=== PATIENT | male | born 1960 | race Asian ===

== ENCOUNTER 2018-09-14 02:50 | Emergency (ER) | payer BC ==
[~2018-09-14] VITALS: Ht 172.7 cm; Wt 74.8 kg
[2018-09-14 03:15] VITALS: BP_SYST 132
--- NOTE | 2018-09-14 03:45 | NUR ---
Pt to bed 6, side rails up. Report given to Dusty MES[facility]
--- NOTE | 2018-09-14 03:50 | NUR ---
Pt in bed AAOX4, VSS with no respiratory distress at this time. Pt came in with a complaint of abdominal pain and cramps 01/26. No other complaint noted. Has history of Hypertension. Safety precaution observed. Will continue to monitor Pt.
--- NOTE | 2018-09-14 04:30 | NUR ---
ER MD Kumar at bedside for medical evaluation
[2018-09-14] MEDS ORDERED: NACL 0.9% 1,000 ML IV ONE (04:54)
[2018-09-14] MEDS ORDERED: ONDANSETRON HCL 4 MG/2 ML VIAL IVP ONE (05:00)
[2018-09-14 05:19] LABS: HEMATOCRIT 46.9 % (36-54); HEMOGLOBIN 15.8 g/dL (14.0-18.0); MEAN CORPUSCULAR VOLUME 88 fL (79.0-98.0); PROTHROMBIN TIME 9.8 SECS (9.5-12.5); RED BLOOD CELL COUNT(AUTO) 5.31 MIL/uL (4.2-6.2); WHITE BLOOD COUNT (AUTO) 13.6 K/uL (4.8-10.8)
[2018-09-14 05:20] LABS: MEAN CORPUSCULAR HEMOGLOBIN 30 pg (27-31); MEAN CORPUSCULAR HGB CONC 34 % (32-36); PLATELET COUNT (AUTO) 268 K/uL (130-430); RED CELL DISTRIBUTION WIDTH 13.2 % (9.0-15.0)
[2018-09-14 05:21] LABS: BASOPHILS % (AUTO) 0.2 % (0.0-2.0); LYMPHOCYTES # (AUTO) 0.2 K/uL (1.0-5.5); LYMPHOCYTES % (AUTO) 1.7 % (20.5-51.5); MONOCYTES # (AUTO) 0.4 K/uL (0.0-1.0); NEUTROPHILS # (AUTO) 12.9 K/uL (1.8-7.7); NEUTROPHILS % (AUTO) 95.1 % (40.0-70.0)
--- NOTE | 2018-09-14 05:30 | NUR ---
Pt in bed, no acute distress at this time. Will continue to monitor Pt.
[2018-09-14 05:35] LABS: CALCIUM 9.4 mg/dL (8.4-11.0); CREATININE 1.25 mg/dL (0.55-1.30); POTASSIUM 3.9 mmol/L (3.5-5.1)
[2018-09-14 05:40] LABS: ALBUMIN 4.4 g/dL (3.4-4.8); TOTAL BILIRUBIN 0.9 mg/dL (0.0-1.0)
[2018-09-14 07:00] VITALS: BP_SYST 128
--- NOTE | 2018-09-14 07:00 | NUR ---
Patient given written and verbal discharge instructions and verbalizes understanding. ER MD Kumar discussed with patient the results and treatment provided. Patient in stable condition. ID arm band removed. IV catheter removed intact and dressing applied, no active bleeding.Rx of given. Patient educated on pain management and to follow up with PMD. Pain Scale 0/10.Opportunity for questions provided and answered. Medication side effect fact sheet provided.
== END 2018-09-14 07:00 | disposition home or self-care (01) ==
LOC: SED 02:50
DX: T62.8X1A Toxic effect of other specified noxious substances eaten as food, accidental (unintentional), initial encounter (principal); I10 Essential (primary) hypertension; Y92.89 Other specified places as the place of occurrence of the external cause
CPT/HCPCS: 36415; 80053; 82150; 83690; 85025; 85610; 96374; 99283; J2405; J7030